=== PATIENT | female | born 1950 | race African-American/Black ===

== ENCOUNTER 2016-09-27 11:26 | Emergency (ER) | payer SELFPAY ==
[2016-09-27] MEDS ORDERED: SODIUM CHLORIDE 0.9% 1,000 ML IV ONE (12:09)
[2016-09-27 12:31] LABS: BASOPHILS % (AUTO) 0.4 %; EOSINOPHILS # (AUTO) 0.1 10^3/uL (0.0-0.7); EOSINOPHILS % (AUTO) 0.9 %; HCT - HEMATOCRIT 38.2 % (37.0-47.0); HGB - HEMOGLOBIN 12.9 g/dL (12.0-16.0); LYMPHOCYTES % (AUTO) 7.4 %; MEAN CORPUSCULAR HGB CONC 33.9 g/dL (32.0-36.0); MEAN CORPUSCULAR VOLUME 94.5 fL (81.0-99.0); MONOCYTES # (AUTO) 0.4 10^3/uL (0.0-1.0); MONOCYTES % (AUTO) 2.6 %; NEUTROPHILS # (AUTO) 12.1 10^3/uL (1.5-6.6); NEUTROPHILS % (AUTO) 88.7 %; RED BLOOD COUNT 4.04 10^6/uL (4.20-5.40); RED CELL DISTRIBUTION WIDTH 12.1 % (12.0-15.0); UNCORRECTED WHITE BLOOD COUNT 13.6 x10^3/uL; WHITE BLOOD COUNT 13.6 x10^3/uL (4.8-10.8)
--- NOTE | 2016-09-27 12:39 | ED Physician Documentation ---
PD HPI NVD - Stated complaint Stated Complaint: NVD - Chief complaint Chief Complaint: Abd Pain - History obtained from History obtained from: Patient, Family - History of Present Illness Timing - onset: How many days ago (3) Timing - duration: Days (3) Timing - details: Still present, Waxing and waning Associated symptoms: Abdominal pain Improved by: Laying still Similar symptoms before: Has not had sx before Recently seen: Not recently seen - Additonal information Additional information: 66 y/o female with 3 days of diarrhea and vomiting feels dehydrated Review of Systems Constitutional: reports: Chills, Fatigue, Sweats. denies: Fever Eyes: denies: Decreased vision Ears: denies: Ear pain Nose: denies: Rhinorrhea / runny nose, Congestion Throat: denies: Sore throat Cardiac: denies: Chest pain / pressure, Palpitations Respiratory: denies: Dyspnea, Cough GI: reports: Abdominal Pain, Nausea, Vomiting, Diarrhea : denies: Dysuria, Frequency Skin: denies: Rash, Lesions Musculoskeletal: denies: Neck pain, Back pain, Extremity pain Neurologic: reports: Generalized weakness. denies: Focal weakness, Numbness PD PAST MEDICAL HISTORY - Present Medications Home Medications: Ambulatory Orders Medication Instructions Recorded Confirmed Ondansetron Odt [Zofran] 4 mg TL Q6H PRN #10 tablet 09/27/16 - Allergies Allergies/Adverse Reactions: Allergies Allergy/AdvReac Type Severity Reaction Status Date / Time No Known Drug Allergies Allergy Verified 09/27/16 11:35 PD ED PE NORMAL - Vitals Vital signs reviewed: Yes (hypertensive ) - General General: No acute distress, Well developed/nourished - HEENT HEENT: Atraumatic, PERRL - Neck Neck: Supple, no meningeal sign - Cardiac Cardiac: RRR, No murmur - Respiratory Respiratory: No respiratory distress, Clear bilaterally - Abdomen Abdomen: Soft, Other (There is general tenderness to the abdomen that is mild and this is more pronounced over the right lateral abdominal wall and suprapubic area without garding or referred tenderness. ) - Rectal Rectal: No: Pt declined - Back Back: No CVA TTP, No spinal TTP - Derm Derm: Normal color, Warm and dry, No rash - Extremities Extremities: No deformity, No edema - Neuro Neuro: No motor deficit, No sensory deficit, Normal speech - Psych Psych: Normal mood, Normal affect Results - Vitals Vitals: Vital Signs - 24 hr 09/27/16 09/27/16 09/27/16 11:33 12:55 14:28 Temperature 36.8 C Heart Rate 79 66 76 Respiratory 14 15 14 Rate Blood Pressure 151/91 H 128/75 116/69 O2 Saturation 100 100 100 Oxygen O2 Source Room air - Labs Labs: Laboratory Tests 09/27/16 09/27/16 09/27/16 12:25 12:25 14:04 WBC 13.6 H RBC 4.04 L Hgb 12.9 Hct 38.2 MCV 94.5 MCH 32.0 H MCHC 33.9 RDW 12.1 Plt Count 246 MPV 8.0 Neut # 12.1 H Lymph # 1.0 L [place] # 0.4 Eos # 0.1 Baso # 0.0 Absolute Nucleated RBC 0.00 Nucleated RBCs 0.0 Sodium 136 Potassium 3.8 Chloride 100 L Carbon Dioxide 26 Anion Gap 10.0 BUN 20 Creatinine 1.3 H Estimated GFR (MDRD) 50 L Glucose 115 H Calcium 9.1 Total Bilirubin 0.5 AST 20 ALT 18 Alkaline Phosphatase 79 Total Protein 7.7 Albumin 3.9 Globulin 3.8 Albumin/Globulin Ratio 1.0 Lipase 33 Urine Color LIGHT YELLOW Urine Clarity CLEAR Urine pH 5.5 Ur Specific [place] <=1.005 Urine Protein NEGATIVE Urine Glucose (UA) NEGATIVE Urine Ketones NEGATIVE Urine Occult Blood MODERATE H Urine Nitrite NEGATIVE Urine Bilirubin NEGATIVE Urine Urobilinogen 0.2 (NORMAL) Ur Leukocyte Esterase NEGATIVE Urine RBC None Seen Urine WBC 0-3 Ur Squamous Epith Cells RARE Squamous Urine Bacteria None Seen Ur Microscopic Review INDICATED Urine Culture Comments NOT INDICATED Procedures - IVC sono (time) 1230 Bedside IVC sono: IVC measures (cm) (0.87), IVC collapsed c insp (cm) (complete) , Dehydration PD MEDICAL DECISION MAKING - ED course Complexity details: reviewed results, re-evaluated patient, considered differential, d/w patient, d/w family ED course: 66 y/o female with gastroenteritis for the past 3 days is dehydrated and she is given IV saline for hydration. Departure - Departure Disposition: 01 Home, Self Care Clinical Impression: Dehydration, Gastroenteritis Instructions: ED Dehydration, ED Gastroenteritis Viral Follow-Up: [facility] [Provider Group] Prescriptions: Ondansetron Odt [Zofran] 4 mg TL Q6H PRN #10 tablet PRN Reason: Nausea / Vomiting
[2016-09-27 12:44] LABS: BILIRUBIN,TOTAL 0.5 mg/dL (0.2-1.0); CALCIUM 9.1 mg/dL (8.5-10.3); CREATININE 1.3 mg/dL (0.4-1.0); POTASSIUM 3.8 mmol/L (3.5-5.0); TOTAL PROTEIN 7.7 g/dL (6.7-8.2)
[2016-09-27 14:11] LABS: BILIRUBIN,URINE NEGATIVE (NEGATIVE); PH,URINE 5.5 PH (5.0-7.5)
[2016-09-27 14:14] LABS: UA w/ MICROSCOPIC CHARGE YES
[2016-09-27 14:22] LABS: UR CULTURE IF IND NOT INDICATED; WBC,URINE 0-3 /HPF (0-5)
[2016-09-27 14:29] VITALS: BP 116/69
== END 2016-09-27 14:39 | disposition home or self-care (01) ==
LOC: ED 11:26
DX: E86.0 Dehydration (principal); K52.9 Noninfective gastroenteritis and colitis, unspecified
CPT/HCPCS: 36415; 80053; 81001; 81003; 83690; 85025; 87045; 87046; 87086; 96360; 96361; 99283